=== PATIENT | male | born 1965 | race Caucasian/White ===

== ENCOUNTER → 2016-07-02 | Outpatient (CLI) | payer OTHER ==
[~2016-07-02] MED LIST: ADDE15TA PO; ASPI1TAB69 PO; BUDE1SUS2 EACH NARE; BUPR100CR PO; LEXA10TA PO; LORA1CHW CHEW; VITATAB9
--- NOTE | 2016-07-02 14:19 | EKG ---
Date Performed: 07/02/2016 Time Performed: 10:09:59 PTAGE: 51 years EKG: Sinus rhythm NORMAL ECG INTERPRETATION BASED ON A DEFAULT AGE OF 40 YEARS NO PREVIOUS TRACING DOCTOR: Aldo Velazquez Interpretating Date/Time 07/02/2016 14:17:51
== END ==
LOC: HCAV 10:02
DX: F90.0 Attention-deficit hyperactivity disorder, predominantly inattentive type (principal)
CPT/HCPCS: 93005